=== PATIENT | male | born 1990 | race African-American/Black ===

== ENCOUNTER 2023-05-17 13:54 | Outpatient (AMB) | payer MEDICAID, SELFPAY ==
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
== END 2023-05-17 14:50 | disposition home or self-care (01) ==
PROVIDERS: PCP Physician Assistant; Referring Provider Physician Assistant; Visit Provider Physician Assistant
DX: M51.26 Other intervertebral disc displacement, lumbar region (principal)
CPT/HCPCS: 99204

== ENCOUNTER → 2023-05-17 13:54 | Outpatient (BNVA) | payer MEDICAID, SELFPAY | PROVIDERS: PCP Physician Assistant; Visit Provider Physician Assistant | DX: M51.26 Other intervertebral disc displacement, lumbar region (principal) | CPT/HCPCS: 99212 ==

== ENCOUNTER 2023-09-04 18:35 | Emergency (ER) | payer MEDICAID, SELFPAY ==
--- NOTE | ~2023-09-04 | XR_ITS ---
EXAMINATION: XR CHEST CLINICAL INFORMATION: Chest pain. COMPARISON: None available. TECHNIQUE: Frontal view of the chest was obtained. FINDINGS: The lungs are clear. The cardiomediastinal silhouette is normal in size. There is no pleural effusion or pneumothorax. No acute osseous abnormality. XR/XR chest 1V IMPRESSION: No acute cardiopulmonary findings.
[2023-09-04 19:16] VITALS: BP 128/81; PULSE 80; RESP 18; TEMP 37.1; O2SAT 100; BMI 24.5
--- NOTE | 2023-09-04 19:21 | ECG_ITS ---
Test Reason : SOB Blood Pressure : / mmHG Vent. Rate : 076 BPM Atrial Rate : 076 BPM P-R Int : 214 ms QRS Dur : 088 ms QT Int : 328 ms P-R-T Axes : 072 054 052 degrees QTc Int : 369 ms Sinus rhythm with 1st degree A-V block Early Repolarization Abnormal ECG No previous ECGs available Referred By: Dominick Holt Electronically Signed By:JAGJIT ARSHAD MD
--- NOTE | 2023-09-04 19:21 | ED.GENADULT ---
HPI - General Adult General Chief complaint: Dyspnea Stated complaint: sob Time Seen by Provider: 09/04/23 23:57 Source: patient Mode of arrival: ambulatory Limitations: no limitations History of Present Illness HPI narrative: Patient is a 33-year-old male who presents emergency department for evaluation of chest pain. He reports he has a lower mid/left chest tightness that is felt with deep inspiration for the past 3 days. Feels as though he can not take a deep breath without pain. He admits to nasal congestion and a nonproductive cough. His children have also been ill with congestion and a cough recently. He denies any headache, dizziness, neck pain, nausea, vomiting, abdominal pain, you numbness or tingling of the extremities. He presented to an urgent care yesterday was given a prescription for an albuterol inhaler and Zyrtec to take daily for bronchitis and upper respiratory infection. He states he traveled to [facility] to 2-3 months ago. Denies personal history of DVT/PE/malignancy. No use of anticoagulants or known coagulation disorders. He denies any recent vaccinations. Denies any precipitating injuries, recent surgery or trauma. Related Data Allergies Allergy/AdvReac Type Severity Reaction Status Date / Time No Known Allergies Allergy Verified 09/04/23 19:19 [No Known Allergies*] Review of Systems Review of Systems: Yes all other systems are reviewed and are negative [facility] Past Medical History Attestation statement: The following information was validated with the patient. Source: old records reviewed Social History Social History Smoked in Last 30 Days: No Advance Directives: No Advance Directives Information Provided: No Do you have a plan to hurt others: No Plan Physical Exam ED Vital Signs: Vital Signs - 24 hr 09/04/23 19:16 09/04/23 21:59 09/05/23 00:00 Temperature 98.8 F 98.2 F 98.4 F Pulse Rate 80 68 70 Respiratory Rate 18 18 16 Blood Pressure 128/81 131/89 145/103 H Pulse Oximetry 100 99 100 Oxygen Delivery Method Room Air Room Air Room Air 09/05/23 01:17 09/05/23 01:25 Temperature 98.4 F 98.4 F Pulse Rate 66 66 Respiratory Rate 16 16 Blood Pressure 122/89 122/89 Pulse Oximetry 97 97 Oxygen Delivery Method Room Air Room Air BMI result Body Mass Index 24.5 Appearance: Alert.?Oriented to person, place and time. No acute distress.?Normal affect. Eyes: Pupils equal, round and reactive to light.? ENT: Pharynx normal.?? Neck: Normal inspection.? Neck supple.??No cervical adenopathy CVS: Heart sounds normal. Normal heart rate and rhythm.? Pulses normal. No murmurs rubs or gallops. No pericardial friction rub?? Respiratory: No respiratory distress.? Lung sounds clear to auscultation bilaterally?? Abdomen: Soft and non-tender. Normoactive bowel sounds. ? Skin: Skin warm and dry.? Normal skin color.? ? Extremities: No lower extremity edema.? No calf ttp? Neuro: Moves all extremities spontaneously. Sensation intact bilaterally. Ambulates with normal steady gait. Course Course Course Narrative: RME: Triage done by TELLY Holt. Patient presents to ED for chest pain on inspiration for the past 3 days. Patient was seen yesterday at urgent care treated as bronchitis but states medication such as Zyrtec and albuterol inhaler not working. Patient denies any recent surgery or trauma. Patient states last long travel was to [facility] in June. We will do medical evaluation including SARs EKG troponin x-ray. Medical Decision Making Medical Decision Making MDM Narrative: Was the patient is a 33-year-old male with no reported past medical history presenting to emergency department for evaluation of chest tightness shortness of breath and cough with nasal congestion as per HPI. Overall he appears well. He is afebrile, without tachycardia tachypnea or hypoxia. He is speaking clear full sentences. Lung sounds are clear bilaterally. Reviewed serum labs EKG and CXR obtained. CBC is without leukocytosis anemia or thrombocytopenia. Coags within normal range. D-dimer negative, not consistent with pulmonary embolism. No electrolyte derangement, no JANINE, LFTs within normal range. BNP within normal range, no evidence of CHF on exam. High sensitive troponin is below detectable limits. EKG reveals a sinus rhythm with first-degree AV block; OR interval 214ms, J-point elevation in V4-V6, with a OR depression in the limb leads concerning for possible pericarditis. No evidence of myopericarditis. No hypotension, immunosuppression, anticoagulants, trauma, pericardial effusion. CXR is without acute pathology, no evidence of pneumonia or pleural effusions. At this time feel that he is stable for discharge home, treatment with NSAIDs, close outpatient follow-up with primary care provider in reviewed worrisome signs and symptoms that would warrant re-evaluation in the emergency department all questions answered. Differential Diagnosis Differential Diagnoses: The differential diagnosis associated with the presentation includes (See narrative above) Admission/Observation Consideration of admission/observation: Escalation of care including admission/observation considered (See narrative above) Lab Data MDM Lab Attestation statement: I reviewed the patient's lab results. (See narrative above) 09/04/23 19:31 09/04/23 19:31 Labs: Lab Results 09/04/23 Range/Units 19:31 WBC 5.5 (4.8-10.8) X10*3/uL RBC 4.92 (4.60-5.80) X10*6/uL Hgb 14.4 (14.0-18.0) g/dl Hct 43.4 (42.0-52.0) % MCV 88.2 (80.0-98.0) fL MCH 29.3 (27.0-33.0) pg MCHC 33.2 (31.0-36.0) g/dl RDW 13.2 (11.0-16.0) % Plt Count 177 (160-400) X10*3/uL MPV 10.7 (9.4-12.4) fL Immature Gran % (Auto) 0.4 (0.0-0.4) % Neut % (Auto) 51.2 (45-73) % Lymph % (Auto) 28.3 (20-40) % Yell % (Auto) 14.7 H (2-11) % Eos % (Auto) 5.0 H (0-4) % Baso % (Auto) 0.4 (0-2) % Lymph # (Auto) 1.5 (1.2-4.9) X10*3/uL Yell # (Auto) 0.8 (0.1-1.2) X10*3/uL Eos # (Auto) 0.3 (0.0-0.4) X10*3/uL Baso # (Auto) 0.0 (0.0-0.2) X10*3/uL Abs Immat Gran (auto) 0.02 (0.00-0.03) X10*3/uL Absolute Neuts (auto) 2.8 (2.0-8.3) x10*3/uL Absolute Nucleated RBC 0.000 (0.0-0.012) X10*3/uL Nucleated RBC % (auto) 0.0 (0.0-0.2) /100WBC PT 11.7 (11.1-13.3) SEC INR 1.0 (0.9-1.1) APTT 32.0 (26.0-36.8) SEC D-Dimer High Sensitivty < 150 NG/ML Sodium 143 (135-145) mmol/L Potassium 4.1 (3.3-5.1) mmol/L Chloride 107 (96-108) mmol/L Carbon Dioxide 25 (22-29) mmol/L Anion Gap 15 (12-20) BUN 11 (9-16) mg/dL Creatinine 1.16 (0.5-1.4) mg/dL Estim Creat Clear Calc 100.3 Estimated GFR > 60 Random Glucose 63 (60-115) mg/dL Calcium 9.9 (8.4-10.2) mg/dL Total Bilirubin 0.3 (0.0-1.0) mg/dL AST 23 (5-37) U/L ALT 31 (0-40) U/L Alkaline Phosphatase 57 (39-117) U/L Troponin I High Sens < 2.7 (<3.5-35.0) ng/L B-Natriuretic Peptide < 10 (<100) pg/mL Total Protein 7.6 (6.5-8.0) g/dL Albumin 4.5 (3.5-5.0) g/dL Influenza Type A (PCR) NEGATIVE (Negative) Influenza Type B (PCR) NEGATIVE (Negative) RSV RNA Qual (PCR) NEGATIVE (Negative) SARS-CoV-2 RNA (RT-PCR) NEGATIVE (Negative) Independent Interpretation I performed an independent interpretation of an: EKG (See narrative above) and Plain X-Ray (See narrative above) Radiology Impression Discussion of test interpretation with radiology: I have reviewed the radiologist's reading. Radiologist Impression: XR/XR chest 1V IMPRESSION: No acute cardiopulmonary findings. Prescription Management I considered prescription management with: Other (NSAID) Discharge Plan Discharge Clinical Impression: Chest pain Patient Disposition: Home, Self-Care Instructions: Chest Pain (ED) Additional Instructions: You can take ibuprofen 200 mg, 3 tablets (600mg) every 6-8 hours for 5 days, then take as needed for pain. You may also take Tylenol 500 mg, 2 tablets (1,000mg) every 4-6 hours as needed for pain, but not to exceed 3 doses daily (3,000mg).? Be sure to rest, stay well hydrated drinking plenty of fluids, eat small frequent meals. Saline nasal spray, humidifier may be helpful for nasal congestion. You may return to the emergency department with any new or worsening symptoms or concerns. Follow-up with your primary care provider as needed. Referrals: Physician,Unknown J [Primary Care Provider] - Interventions: ED Discharge Assessment Last Done: 09/05/23 01:25 Discharge Date/Time: 09/05/23 01:25 Print Language: Afghan
--- NOTE | 2023-09-04 19:34 | MHC.EDTECH ---
Patient brought into triage area,EKG taken per order and signed by provider,labs,and sars obtained and sent to lab
[2023-09-04 19:35] LABS: MANUAL DIFF FLAG NO
[2023-09-04 19:42] LABS: Prothrombin Time 11.7 SEC (11.1-13.3)
[2023-09-04 20:01] LABS: D Dimer High Sensitivity < 150 NG/ML
[2023-09-04 20:10] LABS: Basophils Percent Auto 0.4 % (0-2); Eosinophils Absolute Auto 0.3 X10*3/uL (0.0-0.4); Hematocrit 43.4 % (42.0-52.0); Hemoglobin 14.4 g/dl (14.0-18.0); Imm Gran Abs Auto 0.02 X10*3/uL (0.00-0.03); Imm Gran Pct Auto 0.4 % (0.0-0.4); Lymphocytes Absolute Auto 1.5 X10*3/uL (1.2-4.9); Lymphocytes Percent Auto 28.3 % (20-40); Mean Corpuscular HGB Conc 33.2 g/dl (31.0-36.0); Mean Corpuscular Hemoglobin 29.3 pg (27.0-33.0); Mean Corpuscular Volume 88.2 fL (80.0-98.0); Mean Platelet Volume 10.7 fL (9.4-12.4); Monocytes Absolute Auto 0.8 X10*3/uL (0.1-1.2); Monocytes Percent Auto 14.7 % (2-11); Neutrophils Absolute Auto 2.8 x10*3/uL (2.0-8.3); Neutrophils Percent Auto 51.2 % (45-73); Platelet Count 177 X10*3/uL (160-400); Red Blood Count 4.92 X10*6/uL (4.60-5.80); Red Cell Distribution Width 13.2 % (11.0-16.0); White Blood Count 5.5 X10*3/uL (4.8-10.8)
[2023-09-04 20:11] LABS: Alanine Aminotransferase 31 U/L (0-40); Albumin Level 4.5 g/dL (3.5-5.0); Alkaline Phosphatase 57 U/L (39-117); Anion Gap 15 (12-20); Aspartate Amino Transferase 23 U/L (5-37); Bilirubin Total 0.3 mg/dL (0.0-1.0); Blood Urea Nitrogen 11 mg/dL (9-16); Calcium 9.9 mg/dL (8.4-10.2); Carbon Dioxide 25 mmol/L (22-29); Chloride 107 mmol/L (96-108); Creatinine Clr Calc Pharmacy 100.3; Estimated Glomerular Filt Rate > 60; Glucose Random 63 mg/dL (60-115); Potassium 4.1 mmol/L (3.3-5.1); Sodium 143 mmol/L (135-145); Total Protein 7.6 g/dL (6.5-8.0)
[2023-09-04 20:15] LABS: B Type Natriuretic Peptide < 10 pg/mL (<100)
[2023-09-04 20:20] LABS: Influenza A PCR NEGATIVE (Negative); Influenza B PCR NEGATIVE (Negative); Resp Syncy Virus RNA Qual PCR NEGATIVE (Negative); SARS COV2 PCR INHOUSE NEGATIVE (Negative)
[2023-09-04 20:30] LABS: Troponin-I High Sensitivity < 2.7 ng/L (<3.5-35.0)
[2023-09-04 21:59] VITALS: BP 131/89; PULSE 68; RESP 18; TEMP 36.8; O2SAT 99
[2023-09-05] VITALS: BP 145/103; PULSE 70; RESP 16; TEMP 36.9; O2SAT 100
--- NOTE | 2023-09-05 00:06 | MHC.EDTECH ---
This pct just assumed care of patient ,vitals taken ,patient was hooked up to studio manager .
[2023-09-05 01:17] VITALS: BP 122/89; PULSE 66; RESP 16; TEMP 36.9; O2SAT 97
[2023-09-05 01:25] VITALS: BP 122/89; PULSE 66; RESP 16; TEMP 36.9; O2SAT 97
== END 2023-09-05 01:25 | disposition home or self-care (01) ==
PROVIDERS: Physician Assistant; Emergency Provider Emergency Medicine
DX: R07.9 Chest pain, unspecified (principal); R05.9 Cough, unspecified; R06.02 Shortness of breath; Z03.818 Encounter for observation for suspected exposure to other biological agents ruled out
CPT/HCPCS: 0241U; 71045; 80053; 83880; 84484; 85025; 85379; 85610; 85730; 93005; 99283; 99284

== ENCOUNTER → 2023-09-04 19:21 | Outpatient (BNV) | payer MEDICAID, SELFPAY | PROVIDERS: Emergency Provider Emergency Medicine; Visit Provider Internal Medicine Cardiovascular Disease | DX: R06.02 Shortness of breath (principal) | CPT/HCPCS: 93010 ==